=== PATIENT | female | born 1935 | race Hispanic/Latino ===

== ENCOUNTER 2018-04-18 21:11 | Observation (INO) | payer OTHER ==
[~2018-04-18] VITALS: Ht 154.9 cm; Wt 78.9 kg
[~2018-04-18 21:11] MED LIST: CITA20TA17 PO; LOSA1TAB42 PO; TRAM50TA4 PO
[2018-04-18] MEDS ORDERED: MORPHINE SULFATE 4 MG/1ML SYG ONE ×2 (21:58→22:03)
[2018-04-18] MEDS ORDERED: ONDANSETRON HCL 4 MG/2 ML VIAL ONE ×2 (21:58→22:03)
[2018-04-18 22:04] LABS: BASOPHILS % (AUTO) 0.7 % (0.0-5.0); EOSINOPHILS % (AUTO) 1.5 % (0.0-8.0); HEMATOCRIT 34.1 % (36-48); LYMPHOCYTES % (AUTO) 23.2 % (21.0-51.0); MEAN CORPUSCULAR HEMOGLOBIN 31.2 pg (27.0-33.0); MEAN CORPUSCULAR HGB CONC 34.7 g/dL (32.0-36.0); MEAN CORPUSCULAR VOLUME 89.9 fL (79-99); MONOCYTES % (AUTO) 9.9 % (3.0-13.0); NEUTROPHILS % (AUTO) 64.7 % (40.0-77.0); PLATELET COUNT (AUTO) 194 K/uL (130-400); RED BLOOD CELL COUNT(AUTO) 3.79 MIL/uL (4.00-5.50); RED CELL DISTRIBUTION WIDTH 13.9 % (11.0-15.5); WHITE BLOOD COUNT (AUTO) 9.1 K/uL (4.8-10.8)
[2018-04-18 22:07] LABS: APPEARANCE,URINE Clear (CLEAR); BILIRUBIN,URINE Negative (NEGATIVE); COLOR,URINE Yellow (YELLOW); GLUCOSE, URINE (UA) Negative (NEGATIVE); KETONES,URINE Negative (NEGATIVE); LEUKOCYTE ESTERASE ,URINE Negative (NEGATIVE); NITRATE,URINE Negative (NEGATIVE); OCCULT BLOOD,URINE Negative (NEGATIVE); PH,URINE 6.5 (5.0-8.0); PROTEIN,URINE POS 1+ (NEGATIVE); UROBILINOGEN,URINE 0.2 mg/dL (0.2-1.0)
[2018-04-18 22:16] LABS: BACTERIA,URINE Rare /HPF (None Seen); RBC,URINE 0-1 /HPF (0-1); SQUAMOUS EPITHELIAL CELL,UR None Seen /HPF (0-2); WBC,URINE 0-1 /HPF (0-1)
[2018-04-18] MEDS ORDERED: HYDRALAZINE HCL 25 MG TABLET ONE (22:16)
[2018-04-18 22:44] LABS: ALBUMIN 3.2 g/dL (3.5-5.0); BILIRUBIN,TOTAL 0.8 mg/dL (0.2-1.0); POTASSIUM 3.7 mmol/L (3.5-5.1); TOTAL PROTEIN, SERUM 6.5 g/dL (6.0-8.3)
[2018-04-18] MEDS: SODIUM CHLORIDE 0.9% 1000ML 1,000 ML IV SCH ×2 (23:45)
[2018-04-19] VITALS (7 sets, daily range): BP systolic 101–191; BP diastolic 53–75
[2018-04-19] MEDS: SODIUM CHLORIDE 0.9% 1000ML 1,000 ML IV SCH ×2 (00:46→07:02)
[2018-04-19] MEDS ORDERED: LOSA1TAB42 PO (02:06)
[2018-04-19] MEDS ORDERED: RANI-477 PO (02:10)
[2018-04-19] MEDS ORDERED: NAPR-1192 PO (02:10)
[2018-04-19] MEDS ORDERED: CIPR250T6 PO (02:13)
[2018-04-19] MEDS ORDERED: CLIN150C10 PO (02:13)
[2018-04-19] MEDS ORDERED: ATOR20TA65 PO (02:13)
[2018-04-19] MEDS ORDERED: PHARMACY COMMUNICATION MISC SCH (05:15)
[2018-04-19] MEDS ORDERED: NAPROXEN 250 MG TAB PO PRN (05:15)
[2018-04-19] MEDS ORDERED: NON-FORMULARY MEDICATION 1 EACH (Losartan/Hydrochlorothiazide (Losartan-Hctz 100-12.5 mg T PO SCH (09:00)
[2018-04-19] MEDS: FAMOTIDINE 20MG TAB 20 MG TAB PO SCH (09:30)
[2018-04-19] MEDS: TRAMADOL HCL 50 MG TABLET PO SCH ×2 (09:30→21:00)
[2018-04-19] MEDS: CLINDAMYCIN HCL 150 MG CAP PO SCH ×2 (09:30→21:24)
[2018-04-19] MEDS: LOSARTAN 100 MG TABLET PO SCH ×2 (09:30→14:12)
[2018-04-19] MEDS ORDERED: MAG HYDROX/AL HYDROX/SIMETH ES 30 ML SUSP UDCUP PO PRN (14:00)
[2018-04-19 14:06] LABS: HEMATOCRIT 34.1 % (36-48); MEAN CORPUSCULAR HEMOGLOBIN 30.8 pg (27.0-33.0); MEAN CORPUSCULAR HGB CONC 34.1 g/dL (32.0-36.0); MEAN CORPUSCULAR VOLUME 90.3 fL (79-99); PLATELET COUNT (AUTO) 182 K/uL (130-400); RED BLOOD CELL COUNT(AUTO) 3.77 MIL/uL (4.00-5.50); RED CELL DISTRIBUTION WIDTH 13.8 % (11.0-15.5); WHITE BLOOD COUNT (AUTO) 7.7 K/uL (4.8-10.8)
[2018-04-19 14:18] LABS: CREATININE 0.9 mg/dL (0.5-1.5); POTASSIUM 4.5 mmol/L (3.5-5.1)
[2018-04-19] MEDS: LOSARTAN 50 MG TABLET PO SCH (21:00)
[2018-04-19] MEDS ORDERED: ATORVASTATIN CALCIUM 20 MG TABLET PO SCH (21:00)
[2018-04-20] VITALS: BP 176/63
[2018-04-20] MEDS ORDERED: NITROGLYCERIN 1GM/1 INCH PACKET TD SCH (02:30)
[2018-04-20] MEDS ORDERED: NITROGLYCERIN 1GM/1 INCH PACKET TD ONE (02:33)
[2018-04-20] MEDS: SODIUM CHLORIDE 0.9% 1000ML 1,000 ML IV SCH ×2 (02:38→05:16)
[2018-04-20] MEDS: TRAMADOL HCL 50 MG TABLET PO SCH (02:38)
[2018-04-20 04:00] VITALS: BP 153/61
[2018-04-20 05:32] LABS: HEMATOCRIT 31.3 % (36-48); MEAN CORPUSCULAR HEMOGLOBIN 31.3 pg (27.0-33.0); MEAN CORPUSCULAR HGB CONC 34.4 g/dL (32.0-36.0); MEAN CORPUSCULAR VOLUME 91.1 fL (79-99); PLATELET COUNT (AUTO) 196 K/uL (130-400); RED BLOOD CELL COUNT(AUTO) 3.44 MIL/uL (4.00-5.50); RED CELL DISTRIBUTION WIDTH 14.5 % (11.0-15.5); WHITE BLOOD COUNT (AUTO) 6.4 K/uL (4.8-10.8)
[2018-04-20 05:40] LABS: CREATININE 0.9 mg/dL (0.5-1.5); POTASSIUM 3.8 mmol/L (3.5-5.1)
[2018-04-20 08:00] VITALS: BP 183/72
[2018-04-20] MEDS: LOSARTAN 50 MG TABLET PO SCH (09:37)
[2018-04-20] MEDS: CLINDAMYCIN HCL 150 MG CAP PO SCH (09:37)
[2018-04-20] MEDS: FAMOTIDINE 20MG TAB 20 MG TAB PO SCH (09:37)
[2018-04-20 12:00] VITALS: BP 164/69
== END 2018-04-20 14:00 | disposition home or self-care (01) ==
LOC: EDH 21:11 → EDHIP 23:18 → 4AH 04-19 01:00 → 3AH 04-19 12:17
PROVIDERS: ADMIT Internal Medicine Critical Care Medicine; ATTEND Internal Medicine Critical Care Medicine
DX: E87.1 Hypo-osmolality and hyponatremia (principal); T50.2X5A Adverse effect of carbonic-anhydrase inhibitors, benzothiadiazides and other diuretics, initial encounter; R10.13 Epigastric pain; N39.0 Urinary tract infection, site not specified; I10 Essential (primary) hypertension; E78.5 Hyperlipidemia, unspecified; E66.9 Obesity, unspecified; K21.9 Gastro-esophageal reflux disease without esophagitis; Z90.49 Acquired absence of other specified parts of digestive tract; Y92.89 Other specified places as the place of occurrence of the external cause; Z88.0 Allergy status to penicillin
CPT/HCPCS: 36415 ×3; 74176; 80048 ×2; 80053; 81001; 83605; 83690; 84484; 85025; 85027 ×2; 93005; 96360; 96361 ×2; 99291; G0378 ×39; J2270; J2405 ×2; J7030 ×2

== ENCOUNTER 2019-12-03 02:09 | Observation (INO) | payer OTHER ==
[~2019-12-03] VITALS: Ht 152.4 cm; Wt 78.8 kg
[~2019-12-03 02:09] MED LIST changes: +ATOR20TA65 PO; -CITA20TA17 PO; +CLIN150C10 PO; -LOSA1TAB42 PO; +RANI-655 PO; -TRAM50TA4 PO
[2019-12-03] MEDS ORDERED: HYDROXYZINE HCL 25 MG TABLET ONE (02:35)
[2019-12-03 02:36] LABS: BASOPHILS % (AUTO) 0.5 % (0.0-5.0); HEMATOCRIT 36.1 % (36-48); LYMPHOCYTES % (AUTO) 22.1 % (21.0-51.0); MEAN CORPUSCULAR HEMOGLOBIN 30.1 pg (27.0-33.0); MEAN CORPUSCULAR HGB CONC 32.4 g/dL (32.0-36.0); MEAN CORPUSCULAR VOLUME 92.8 fL (79-99); MONOCYTES % (AUTO) 6.6 % (3.0-13.0); NEUTROPHILS % (AUTO) 66.6 % (40.0-77.0); PLATELET COUNT (AUTO) 185 K/uL (130-400); RED BLOOD CELL COUNT(AUTO) 3.89 MIL/uL (4.00-5.50); RED CELL DISTRIBUTION WIDTH 13.2 % (11.0-15.5)
[2019-12-03 02:45] LABS: CREATININE 1.2 mg/dL (0.5-1.5); POTASSIUM 4.4 mmol/L (3.5-5.1)
[2019-12-03 02:49] LABS: INR 0.89 (0.85-1.15); PARTIAL THROMBOPLASTIN TIME 23.9 SEC (26.3-35.5); PROTHROMBIN TIME 9.7 SEC (9.6-11.6)
[2019-12-03 02:50] LABS: ALBUMIN 3.3 g/dL (3.5-5.0); BILIRUBIN,TOTAL 0.4 mg/dL (0.2-1.0); TOTAL PROTEIN, SERUM 6.9 g/dL (6.0-8.3)
[2019-12-03] MEDS ORDERED: NITROGLYCERIN 1GM/1 INCH PACKET TD ONE (03:35)
[2019-12-03] MEDS ORDERED: ACETAMINOPHEN 325 MG TAB ONE (03:35)
[2019-12-03] MEDS ORDERED: METOPROLOL TARTRATE 1 MG/ML 5ML VIAL IV ONE (03:35)
[2019-12-03] MEDS ORDERED: ASPIRIN 325 MG TABLET ONE (03:40)
[2019-12-03] MEDS ORDERED: ACETAMINOPHEN EXTRA STRENGTH 500 MG TABLET ONE (03:41)
[2019-12-03 04:04] LABS: APPEARANCE,URINE Clear (CLEAR); BILIRUBIN,URINE Negative (NEGATIVE); COLOR,URINE Yellow (YELLOW); GLUCOSE, URINE (UA) Negative (NEGATIVE); KETONES,URINE Negative (NEGATIVE); LEUKOCYTE ESTERASE ,URINE Negative (NEGATIVE); NITRATE,URINE Negative (NEGATIVE); OCCULT BLOOD,URINE Trace (NEGATIVE); PROTEIN,URINE 300 mg/dL (NEGATIVE); UROBILINOGEN,URINE 0.2 mg/dL (0.2-1.0)
[2019-12-03] MEDS ORDERED: HYDRALAZINE HCL 20 MG/ML VIAL ONE (04:18)
[2019-12-03 04:26] LABS: AMORPHOUS SEDIMENT,UR Rare /LPF (None Seen); BACTERIA,URINE None Seen /HPF (None Seen); RBC,URINE 0-1 /HPF (0-1); SQUAMOUS EPITHELIAL CELL,UR Rare /HPF (0-2); WBC,URINE None Seen /HPF (0-1)
[2019-12-03 05:45] VITALS: BP 138/69
[2019-12-03] MEDS ORDERED: NITROGLYCERIN 1GM/1 INCH PACKET TD SCH (06:00)
[2019-12-03] MEDS ORDERED: NAPR-1192 PO (06:35)
[2019-12-03] MEDS ORDERED: LOSA50TA64 PO (06:35)
[2019-12-03] MEDS ORDERED: PARO-37 PO (06:35)
[2019-12-03] MEDS ORDERED: GABA-529 PO (06:35)
[2019-12-03] MEDS: NITROGLYCERIN 1GM/1 INCH PACKET TD SCH ×3 (06:52→20:06)
[2019-12-03] MEDS: HEPARIN SODIUM 5000UNIT/ML 1ML VIAL SQ SCH ×2 (06:59→18:43)
[2019-12-03 07:17] LABS: THYROID STIMULATING HORMONE 3.98 uIU/mL (0.36-3.74)
[2019-12-03 07:59] VITALS: BP 175/75
[2019-12-03] MEDS: NAPROXEN 250 MG TAB PO SCH ×2 (08:29→20:26)
[2019-12-03] MEDS: LOSARTAN 50 MG TABLET PO SCH ×2 (08:30→20:26)
[2019-12-03] MEDS: GABAPENTIN 100 MG CAPSULE PO SCH ×2 (08:30→20:26)
[2019-12-03] MEDS: PAROXETINE HCL 20 MG TABLET PO SCH (08:30)
[2019-12-03 09:55] LABS: MEAN CORPUSCULAR HEMOGLOBIN 29.3 pg (27.0-33.0); MEAN CORPUSCULAR HGB CONC 32.4 g/dL (32.0-36.0); MEAN CORPUSCULAR VOLUME 90.4 fL (79-99); RED BLOOD CELL COUNT(AUTO) 3.76 MIL/uL (4.00-5.50); RED CELL DISTRIBUTION WIDTH 13.2 % (11.0-15.5); WHITE BLOOD COUNT (AUTO) 10.2 K/uL (4.8-10.8)
[2019-12-03 10:03] LABS: CREATININE 0.9 mg/dL (0.5-1.5); POTASSIUM 3.9 mmol/L (3.5-5.1)
[2019-12-03] MEDS ORDERED: METOPROLOL TARTRATE 1 MG/ML 5ML VIAL IV PRN (10:45)
[2019-12-03] MEDS: HYDRALAZINE HCL 20 MG/ML VIAL IV PRN ×2 (11:16→16:46)
[2019-12-03 11:42] VITALS: BP 171/68
[2019-12-03 15:41] LABS: CHOLESTEROL 130 mg/dL (<200); HDL CHOLESTEROL 106 mg/dL (35-85); LDL DIRECT 45 mg/dL (0-99); TRIGLYCERIDES 41 mg/dL (30-200)
[2019-12-03 16:00] VITALS: BP 178/74
[2019-12-03] MEDS: NIFEDIPINE ER 30 MG TAB PO SCH (18:41)
[2019-12-03] MEDS: HYDROCHLOROTHIAZIDE 25 MG TABLET PO SCH (18:41)
[2019-12-03] MEDS: FUROSEMIDE 10 MG/ML 2ML VIAL IV SCH (18:41)
[2019-12-03 19:56] VITALS: BP 148/49
[2019-12-03] MEDS: METOPROLOL TARTRATE 25 MG TAB PO SCH (20:24)
[2019-12-03] MEDS: SIMVASTATIN 20 MG TABLET PO SCH (20:25)
[2019-12-03 23:24] VITALS: BP 140/51
[2019-12-04] MEDS: NITROGLYCERIN 1GM/1 INCH PACKET TD SCH ×5 (00:57→23:56)
[2019-12-04 03:58] VITALS: BP 154/58
[2019-12-04 05:23] LABS: BASOPHILS % (AUTO) 0.1 % (0.0-5.0); EOSINOPHILS % (AUTO) 1.9 % (0.0-8.0); LYMPHOCYTES % (AUTO) 23.3 % (21.0-51.0); MEAN CORPUSCULAR HEMOGLOBIN 29.3 pg (27.0-33.0); MEAN CORPUSCULAR HGB CONC 32.5 g/dL (32.0-36.0); MEAN CORPUSCULAR VOLUME 90.1 fL (79-99); MONOCYTES % (AUTO) 10.5 % (3.0-13.0); NEUTROPHILS % (AUTO) 63.4 % (40.0-77.0); PLATELET COUNT (AUTO) 177 K/uL (130-400); RED BLOOD CELL COUNT(AUTO) 3.55 MIL/uL (4.00-5.50); RED CELL DISTRIBUTION WIDTH 13.5 % (11.0-15.5); WHITE BLOOD COUNT (AUTO) 7.2 K/uL (4.8-10.8)
[2019-12-04 05:43] LABS: CREATININE 1.2 mg/dL (0.5-1.5); MAGNESIUM 1.9 mg/dL (1.80-2.40); PHOSPHORUS 4.2 mg/dL (2.5-4.9); POTASSIUM 4.1 mmol/L (3.5-5.1)
[2019-12-04 08:00] VITALS: BP 166/70
[2019-12-04] MEDS ORDERED: NAPROXEN 500 MG TABLET ONE (08:44)
[2019-12-04] MEDS: METOPROLOL TARTRATE 25 MG TAB PO SCH ×2 (08:46→20:12)
[2019-12-04] MEDS: LOSARTAN 50 MG TABLET PO SCH ×2 (08:46→20:11)
[2019-12-04] MEDS: PAROXETINE HCL 20 MG TABLET PO SCH (08:47)
[2019-12-04] MEDS: HYDROCHLOROTHIAZIDE 25 MG TABLET PO SCH (08:47)
[2019-12-04] MEDS: NIFEDIPINE ER 30 MG TAB PO SCH (08:47)
[2019-12-04] MEDS: GABAPENTIN 100 MG CAPSULE PO SCH ×2 (08:47→20:11)
[2019-12-04] MEDS: ASPIRIN 81MG TAB.CHEW PO SCH (08:47)
[2019-12-04] MEDS: FUROSEMIDE 10 MG/ML 2ML VIAL IV SCH (08:48)
[2019-12-04] MEDS: NAPROXEN 250 MG TAB PO SCH ×2 (08:48→20:21)
[2019-12-04] MEDS: HEPARIN SODIUM 5000UNIT/ML 1ML VIAL SQ SCH ×2 (08:52→20:14)
[2019-12-04 11:33] VITALS: BP 126/60
[2019-12-04] MEDS: FUROSEMIDE 20 MG TABLET PO SCH (12:00)
[2019-12-04 19:00] VITALS: BP 151/55
[2019-12-04] MEDS: SIMVASTATIN 20 MG TABLET PO SCH (20:12)
[2019-12-04 23:00] VITALS: BP 162/53
[2019-12-05 03:00] VITALS: BP 164/62
[2019-12-05 06:01] LABS: CREATININE 1.3 mg/dL (0.5-1.5); POTASSIUM 3.7 mmol/L (3.5-5.1)
[2019-12-05] MEDS: NITROGLYCERIN 1GM/1 INCH PACKET TD SCH ×2 (07:00→13:19)
[2019-12-05] MEDS: LOSARTAN 50 MG TABLET PO SCH (07:46)
[2019-12-05] MEDS: METOPROLOL TARTRATE 25 MG TAB PO SCH (07:46)
[2019-12-05] MEDS: HYDROCHLOROTHIAZIDE 25 MG TABLET PO SCH (07:48)
[2019-12-05] MEDS: PAROXETINE HCL 20 MG TABLET PO SCH (07:48)
[2019-12-05] MEDS: ASPIRIN 81MG TAB.CHEW PO SCH (07:48)
[2019-12-05] MEDS: FUROSEMIDE 20 MG TABLET PO SCH (07:48)
[2019-12-05] MEDS: NIFEDIPINE ER 30 MG TAB PO SCH (07:48)
[2019-12-05] MEDS: GABAPENTIN 100 MG CAPSULE PO SCH (07:49)
[2019-12-05] MEDS: NAPROXEN 250 MG TAB PO SCH (07:49)
[2019-12-05] MEDS: HEPARIN SODIUM 5000UNIT/ML 1ML VIAL SQ SCH (07:51)
[2019-12-05 08:08] VITALS: BP 134/56
[2019-12-05 11:58] VITALS: BP 170/58
[2019-12-05] MEDS ORDERED: METO25TA6 PO (11:59)
[2019-12-05] MEDS ORDERED: NIFE-40 PO (11:59)
[2019-12-05] MEDS ORDERED: HYDR12.54 PO (11:59)
--- NOTE | 2019-12-05 12:00 | NUR ---
CM NOTE CM discussed admission with Tomer GUERIN. States pt is discharging today. Notified that pt meets IP criteria. Left observation and will be placing d/c orders when medications reconciled by cardiology. Addendum: 12/05/19 at 1712 by ROBERT MAJANO CM Amended: Links added.
[2019-12-05] MEDS ORDERED: SIMV-43 PO (13:31)
[2019-12-05] MEDS ORDERED: ASPI-1005 PO (13:31)
== END 2019-12-05 15:20 | disposition home or self-care (01) ==
LOC: EDH 02:09 → EDHIP 03:35 → 3AH 04:46
PROVIDERS: ADMIT Internal Medicine Critical Care Medicine; ATTEND Internal Medicine Critical Care Medicine
DX: I16.0 Hypertensive urgency (principal); R00.0 Tachycardia, unspecified; R79.89 Other specified abnormal findings of blood chemistry; E66.9 Obesity, unspecified; E78.5 Hyperlipidemia, unspecified; E11.40 Type 2 diabetes mellitus with diabetic neuropathy, unspecified; I10 Essential (primary) hypertension; Z79.899 Other long term (current) drug therapy; Z88.0 Allergy status to penicillin; Z90.710 Acquired absence of both cervix and uterus; Z90.49 Acquired absence of other specified parts of digestive tract
CPT/HCPCS: 36415 ×3; 70450; 71045 ×2; 80048 ×3; 80053; 80061; 81001; 82550; 83735; 83880; 84100; 84439; 84443; 84481; 84484 ×5; 85025 ×2; 85027; 85610; 85730; 93005 ×6; 93306; 93356; 96372 ×3; 96374; 96375; 96376 ×2; 99291; G0378 ×22; J0360 ×3; J1644 ×5; J1940 ×2; J3490

== ENCOUNTER → 2021-09-12 | Outpatient (CLI) | payer OTHER ==
[~2021-09-12] MED LIST changes: +ASPI-1005 PO; -ATOR20TA65 PO; -CLIN150C10 PO; +GABA-529 PO; +HYDR12.54 PO; +LOSA50TA64 PO; +METO25TA6 PO; +NAPR-1192 PO; +NIFE-40 PO; +PARO-37 PO; -RANI-655 PO; +SIMV-43 PO
== END | disposition home or self-care (01) ==
LOC: RAH 14:16
PROVIDERS: ATTEND Family Medicine
DX: G31.9 Degenerative disease of nervous system, unspecified (principal); R51.9 Headache, unspecified; W19.XXXA Unspecified fall, initial encounter; Y93.89 Activity, other specified; Y92.89 Other specified places as the place of occurrence of the external cause; Y99.8 Other external cause status
CPT/HCPCS: 70450

== ENCOUNTER → 2021-10-27 | Outpatient (CLI) | payer OTHER | END | disposition home or self-care (01) | LOC: SHCH 12:36 | PROVIDERS: ATTEND Internal Medicine Cardiovascular Disease | DX: I08.8 Other rheumatic multiple valve diseases (principal) | CPT/HCPCS: 93306 ==

== ENCOUNTER → 2022-09-28 | Outpatient (CLI) | payer OTHER | END | disposition home or self-care (01) | LOC: SHCH 13:41 | PROVIDERS: ATTEND Internal Medicine Cardiovascular Disease | DX: I08.1 Rheumatic disorders of both mitral and tricuspid valves (principal); I50.32 Chronic diastolic (congestive) heart failure | CPT/HCPCS: 93306 ==

== ENCOUNTER → 2023-12-15 | Outpatient (CLI) | payer OTHER | END | disposition home or self-care (01) | LOC: SHCH 13:21 | PROVIDERS: ATTEND Internal Medicine Cardiovascular Disease | DX: I35.9 Nonrheumatic aortic valve disorder, unspecified (principal) | CPT/HCPCS: 93306 ==

== ENCOUNTER → 2024-11-30 | Outpatient (CLI) | payer OTHER | END | disposition home or self-care (01) | LOC: SHCH 13:49 | PROVIDERS: ATTEND Internal Medicine Cardiovascular Disease | DX: I08.3 Combined rheumatic disorders of mitral, aortic and tricuspid valves (principal); I11.9 Hypertensive heart disease without heart failure; R01.1 Cardiac murmur, unspecified | CPT/HCPCS: 93306 ==